=== PATIENT | female | born 1985 | race Caucasian/White ===

== ENCOUNTER 2018-09-18 17:09 | Outpatient (REF) | payer MEDICAID, SELFPAY ==
[2018-09-20 13:01] LABS: Chlamydia Result Negative; GC Result Negative; Specimen Description CERVIX
== END 2018-09-18 17:29 ==
LOC: LBN 17:09
PROVIDERS: Visit Provider Nurse Practitioner Family
DX: Z11.3 Encounter for screening for infections with a predominantly sexual mode of transmission (principal)
CPT/HCPCS: 87491; 87591

== ENCOUNTER 2019-03-16 03:19 | Outpatient (CLI) | payer MEDICAID, SELFPAY ==
--- NOTE | 2019-03-16 13:54 | DI.MRI_ITS ---
EXAM: MR CERVICAL SPINE WO CLINICAL HISTORY: left arm weakness, R29.898. TECHNIQUE: Multiplanar multisequence MRI was performed. MR examination of the cervical spine was pe rformed according to the usual protocol. COMPARISON: No exams were available for comparison FINDINGS: Imaging of the posterior fossa is unremarkable. There are peridiscal vertebral signal changes at C4- 5 and C5-6 consistent with disc degeneration and there is signal loss also seen involving these discs . No significant findings at C2-3 or C3-4. At C4-5, there is mild bilateral neural foraminal narrowing and there is a moderate-sized to large ce ntral disc herniation with associated impingement on and compression of the spinal cord. No intracor d signal abnormality seen. At C5-6, there is a moderate-sized broad-based disc herniation with impression on and deformity of th e anterior cord, no intracord signal abnormality seen. There is bilateral neural foraminal narrowing at C5-6. At C6-7, the bony spinal canal, neural foramina and intervertebral disc appear normal. IMPRESSION: Disc herniations at C4-5 and C5-6 as described above with cord impingement and deformity at each of t hese levels. Bilateral neural foraminal narrowing also noted at each of these levels.
== END 2019-03-16 03:39 ==
PROVIDERS: PCP Emergency Medicine; Visit Provider Emergency Medicine
DX: M50.321 Other cervical disc degeneration at C4-C5 level (principal); M50.322 Other cervical disc degeneration at C5-C6 level; M50.221 Other cervical disc displacement at C4-C5 level; M50.222 Other cervical disc displacement at C5-C6 level
CPT/HCPCS: 72141

== ENCOUNTER 2019-09-18 01:22 | Outpatient (CLI) | payer MEDICAID, SELFPAY ==
--- NOTE | 2019-09-18 | DI.CT_ITS ---
EXAM: CT BRAIN NECK CTA CLINICAL HISTORY: HEAD PAIN, HEADACHE, MIGRAINE, R51, G43.909. TECHNIQUE: Imaging Protocol: Axial CT angiography was performed with multi-slice acquisition and mu lti-planar and/or 3D reconstructions. CONTRAST MATERIAL: Intravenous: Omnipaque 350 Contrast volume:structured data in ml COMPARISON: No exams were available for comparison FINDINGS: CT Head W/O: Ventricles and Extra axial spaces: Normal in size and morphology for the patient's age. Hemorrhage: None. Cerebral parenchyma: Normal. Midline shift: None. Brainstem/Cerebellum: Normal. Calvarium: Normal. Visualized Paranasal sinuses/Mastoids: Clear. Soft Tissues: Unremarkable. CTA Brain W: Internal Carotid Arteries: Petrous: Normal. Cavernous: Normal. Cerebral: Normal. Middle Cerebral Arteries: Right: No aneurysm, occlusion or significant stenosis. Left: No aneurysm, occlusion or significant stenosis. Anterior Cerebral Arteries: Right: No aneurysm, occlusion or significant stenosis. Left: No aneurysm, occlusion or significant stenosis. Posterior cerebral Arteries: Right: No aneurysm, occlusion or significant stenosis. Left: No aneurysm, occlusion or significant stenosis. Vertebral Arteries: Right: No aneurysm, occlusion or significant stenosis. Left: No aneurysm, occlusion or significant stenosis. Basilar Artery: No aneurysm, occlusion or significant stenosis. CTA Neck W: Common Carotid: Right: No aneurysm, occlusion or significant stenosis. Left: No aneurysm, occlusion or significant stenosis. External Carotid: Right: No aneurysm, occlusion or significant stenosis. Left: No aneurysm, occlusion or significant stenosis. Internal Carotid: Right: No aneurysm, occlusion or significant stenosis. Left: No aneurysm, occlusion or significant stenosis. Vertebral Artery: Right: No aneurysm, occlusion or significant stenosis. Left: No aneurysm, occlusion or significant stenosis. Lung Apices: Normal. Bones: Degenerative changes are seen at C4-5 and C5-C6. Soft Tissues: Normal. IMPRESSION: 1. Normal CTA examination of the [place] of [place]. 2. Unremarkable noncontrast CT Head. 3. Normal CTA examination of the neck. RADIATION DOSE DELIVERED: Total DLP DATA REPOSITORY: All CT scans at this facility are submitted to the National Radiology Data Registry (NRDR) Dose Index Registry (DIR) with the [employer] (ACR). RADIATION OPTIMIZATION: All CT scans at this facility use at least one of these dose optimization te chniques: automated exposure control; mA and/or kV adjustment per patient size (includes targeted exa ms where dose is matched to clinical indication); or iterative reconstruction.
[2019-09-18] MEDS: Omnipaque 350 MG/ML 100 ML BTL IJ (08:49)
[2019-09-18] MEDS: Normal Saline Flush 10 ML SYR IVP (08:50)
[2019-09-18] MEDS: Normal Saline - Diluent 50 ML VIAL IV (08:50)
== END 2019-09-18 01:42 ==
PROVIDERS: PCP Emergency Medicine; Visit Provider Neurological Surgery
DX: R51 Headache (principal); G43.909 Migraine, unspecified, not intractable, without status migrainosus
CPT/HCPCS: 70496; 70498; J3490

== ENCOUNTER 2020-05-01 15:35 | Outpatient (REF) | payer MEDICAID, SELFPAY ==
--- NOTE | 2020-05-01 15:00 | PAPFT_PTH ---
PATIENT: Carla Doshi LOC: [facility] U#:[id number] AGE/SX: 35/F ROOM: RE05/01/[address]: DAVE Enamorado : 1985 BED: DIS: 05/01/2020 SPEC #: [id number] RECD: 05/01/20 17:54 STATUS: ROBERT RERosa #: [id number] GRAHAM: 05/01/20 15:[address]: Mariza Walter DEPT: [facility] Cytology RECD BY: Delicia Zelaya ENTERED: 05/01/20 17:54 SP TYPE: PAPFT OTHR DR: Eric Adam, Tissues: 1 - CX/ENDOCX FOR PAP SMEARS Procedures: PAP THIN PREP/UVM Screening HPV DNA PROBE Comments: [id number]
[2020-05-02 16:25] LABS: Chlamydia Result Negative (Negative); GC Result Negative (Negative)
== END 2020-05-01 15:36 | disposition home or self-care (01) ==
LOC: LBN 15:35
PROVIDERS: PCP Emergency Medicine; Visit Provider Nurse Practitioner Family
DX: Z11.3 Encounter for screening for infections with a predominantly sexual mode of transmission (principal); Z12.4 Encounter for screening for malignant neoplasm of cervix; Z11.51 Encounter for screening for human papillomavirus (HPV)
CPT/HCPCS: 87491; 87591; 88142; 87624

== ENCOUNTER 2020-07-28 03:15 | Outpatient (CLI) | payer MEDICAID, SELFPAY ==
[2020-07-29 09:35] LABS: HBs Antibody, Quant 56.1 mIU/mL (See Note); Hepatitis B Surface Ab Positive (See Note)
[2020-07-29 13:19] LABS: Measles IgG Antibody Negative (See Note); Mumps Antibody IgG Positive (See Note); Rubella IgG Ab (UVM) Positive (See Note)
== END 2020-07-28 03:16 | disposition home or self-care (01) ==
LOC: LOS 03:15
PROVIDERS: PCP Emergency Medicine; Visit Provider Physician Assistant
DX: Z11.59 Encounter for screening for other viral diseases (principal); Z01.84 Encounter for antibody response examination; Z00.00 Encounter for general adult medical examination without abnormal findings
CPT/HCPCS: 36415; 86706; 86735; 86762; 86765

== ENCOUNTER 2021-07-21 11:55 | Outpatient (CLI) | payer MEDICAID, SELFPAY ==
--- NOTE | 2021-07-21 10:30 | DI.RAD_ITS ---
Exam(s) XR HIP LT COMPLETE AP PELVIS EXAM: XR HIP LT COMPLETE AP PELVIS CLINICAL HISTORY: LEFT HIP PAIN. TECHNIQUE: 2D digital imaging was performed. COMPARISON: No exams were available for comparison FINDINGS: Two views There is no evidence of pelvic hip fracture. Bone density is normal. Additional lateral view left h ip also reveals no significant joint space narrowing. If there is clinical suspicion for CAM-type CARINE than cross-table lateral view would be recommended as this would better show bony excrescence at the femoral neck level. IMPRESSION: DATA REPOSITORY: RADIATION DOSE DELIVERED:
== END 2021-07-21 11:56 | disposition home or self-care (01) ==
LOC: DIORS 11:55
PROVIDERS: Visit Provider Student in an Organized Health Care Education/Training Program
DX: M25.552 Pain in left hip (principal)
CPT/HCPCS: 73502

== ENCOUNTER 2022-04-23 01:29 | Outpatient (CLI) | payer MEDICAID, SELFPAY ==
[2022-04-23 09:29] LABS: ALT 23 U/L (14-59); AST 21 U/L (15-37); Albumin 3.9 g/dL (3.4-5.0); Alkaline Phosphatase 63 U/L (46-116); Anion Gap 5.5 mmol/L (3-11); BUN 20 mg/dL (7-18); Bilirubin, Total 0.4 mg/dL (0.2-1.0); CO2 29.5 mmol/L (21.0-32.0); CREATININE 1.1 mg/dL (0.55-1.02); Calcium 9.1 mg/dL (8.5-10.1); Calculated LDL 111 mg/dL (<100); Chloride 104 mmol/L (98-107); Cholesterol 186 mg/dL (<200); Estimated GFR 66.37 (mL/min/1.73m2); Glucose 92 mg/dL (74-106); HDL Cholesterol 68 mg/dL (40-60); Potassium 4.1 mmol/L (3.5-5.1); Sodium 139 mmol/L (136-145); TSH (W/Ref FT4) 0.76 uIU/mL (0.36-3.74); Total Protein 7.6 g/dL (6.4-8.2); Triglyceride 35 mg/dL (<150)
== END 2022-04-23 01:30 | disposition home or self-care (01) ==
PROVIDERS: PCP Nurse Practitioner Family; Visit Provider Nurse Practitioner Family
DX: G43.009 Migraine without aura, not intractable, without status migrainosus (principal); Z13.220 Encounter for screening for lipoid disorders
CPT/HCPCS: 36415; 80053; 80061; 84443

== ENCOUNTER 2022-07-28 01:07 | Outpatient (CLI) | payer MEDICAID, SELFPAY ==
--- NOTE | 2022-07-28 12:36 | DI.RAD_ITS ---
Exam(s) XR HIP RT COMPLETE AP PELVIS EXAM: XR HIP RT COMPLETE AP PELVIS INDICATION: no improvement with PT,rt hip pain,m25.551. COMPARISON: CR XR HIP LT COMPLETE AP PELVIS from 07/21/2021 TECHNIQUE: 2D digital imaging was performed. Two views. FINDINGS: Bones are normally mineralized. There is no hip joint space narrowing or significant acetabular spu rring. No soft tissue calcifications. IUD incidentally noted. SI joints and pubic symphysis are un remarkable. IMPRESSION: Negative pelvis and right hip. DATA REPOSITORY: RADIATION DOSE DELIVERED:
== END 2022-07-28 01:27 ==
LOC: DI 01:07
PROVIDERS: PCP Nurse Practitioner Family; Visit Provider Nurse Practitioner Family
DX: M25.551 Pain in right hip (principal)
CPT/HCPCS: 73502

== ENCOUNTER 2022-09-06 02:46 | Outpatient (CLI) | payer MEDICAID, SELFPAY ==
--- NOTE | 2022-09-06 07:00 | DI.MRI_ITS ---
Exam(s) MR LOWER JOINT RT WO EXAM: MR LOWER JOINT RT WO CLINICAL HISTORY: GLUTEAL TENDON TEAR RT, TROCHANTERIC BURSITIS RT HIP, S76.011A, M70.61 TECHNIQUE: Multiplanar multisequence MRI of Pelvis was performed COMPARISON: MR PELVIS ADULT from 08/14/2021 CR XR HIP RT COMPLETE AP PELVIS from 07/28/2022 FINDINGS: Bones: There is no fracture or contusion pattern. No bone marrow edema is seen. Joints: No significant joint effusion or gross labral defect is present. The SI joints and symphysis pubis are well maintained. Disc degeneration at L5-S1. Musculotendinous structures: Mild edema at the gluteus medius insertion. No evidence of trochanteric bursitis. Intrapelvic structures demonstrate no significant abnormality. IUD noted within endometrial stripe. IMPRESSION: Right-sided gluteus medius tendinosis. No evidence of bursitis. DATA REPOSITORY:
== END 2022-09-06 03:06 ==
LOC: DI 02:46
PROVIDERS: PCP Nurse Practitioner Family; Visit Provider Student in an Organized Health Care Education/Training Program
DX: M70.61 Trochanteric bursitis, right hip (principal); S76.011A Strain of muscle, fascia and tendon of right hip, initial encounter; X58.XXXA Exposure to other specified factors, initial encounter
CPT/HCPCS: 73721

== ENCOUNTER 2023-01-28 12:52 | Day surgery (SDC) | payer MEDICAID, SELFPAY ==
[2023-01-28] VITALS (8 sets, daily range): BP systolic 116–128; BP diastolic 54–86; PULSE 77–94; RESP 15–19; TEMP 36.3–37; O2SAT 96–99; BMI 32.1
--- NOTE | 2023-01-28 11:50 | W.PM.DSUDISC ---
Date of service: 01/28/23 Time of Service: 17:30 Discharge Plan Disposition Patient Disposition: Home Condition: Stable Discharge Details Attending Provider: Emir Saab Primary Care Provider: Kevin Meek Home Meds and New Rx's Prescriptions: New naproxen 250 mg tablet 250 - 500 mg PO BID PRN (Reason: moderate pain and swelling) Qty: 40 0RF aspirin 81 mg capsule 81 mg PO DAILY 14 Days Qty: 14 0RF oxycodone 5 mg tablet 5 - 10 mg PO .q4-6h PRN (Reason: severe pain) Qty: 18 0RF Continued Mirena 20 mcg/24 hours (6 yrs) 52 mg intrauterine device 1 device intrauterine ONCE Rx Instructions: as a single dose riboflavin (vitamin B2) 100 mg tablet 200 mg PO BID Qty: 360 4RF rizatriptan 10 mg tablet,disintegrating 10 mg PO ONCE PRN (Reason: migraine headache) Qty: 14 12RF Rx Instructions: may repeat once after at least 2 hours ondansetron 4 mg tablet,disintegrating 4 mg PO Q8H PRN (Reason: nausea and vomiting) Qty: 30 0RF Discharge Instructions Additional Instructions: Surgery: Right hip endoscopy with iliotibial band release and trochanteric bursectomy Activity: Weightbearing as tolerated. May use crutches for a couple weeks. Gradually advance to full range of motion and activity over the next 6-8 weeks. A physical therapy prescription will be provided separately in the office at follow up if needed. Prescriptions: Aspirin 81 mg take 1 daily to prevent a blood clot for 2 weeks Naproxen 250 mg take 1-2 every 12 hours with a meal as needed for moderate pain Oxycodone 5 mg take 1-2 every 4-6 hours as needed for severe pain You may use aiql-pni-boluaeo Tylenol (acetaminophen) as needed for mild pain. These pain medications may be taken all at once or in different combinations as needed. Also, recommend Colace (docusate) as a stool softener as surgery and pain medicine cause constipation. You may try lkza-lkw-bvbbzjh diphenhydramine (Benadryl) 25-50 mg nightly as a sleep aid Dressings: Leave dressing in place for 3 days. May then remove and leave open to air or cover incisions with Band-Aids. Leave the sticky Steri-Strips in place until they fall off or remove them after you shower. May shower after 5 days. Follow-up: 10-[address] Saab You may take off the leg compression stockings this evening at home. You may also leave them on a few days longer if you have a history of leg swelling or edema. Let us know right away if you develop any redness, drainage, fevers, chest pain, or trouble breathing. Do not drink alcohol or drive for at least 24 hours after anesthesia. Please call the office during business hours with any questions or concerns. Stand Alone Forms: Anesthesia Discharge Inst., Anes.Sugammadex Interaction, Lily Saldaña (DSU) Discharge Orders Discharge Orders: Discharge Order (Routine); Ordered 01/28/23 Ordered By: Emir Saab DS: Diagnosis Discharge Diagnosis (1) Trochanteric bursitis of right hip: Status: Acute
--- NOTE | 2023-01-28 12:06 | W.PM.OP ---
Date of service: 01/28/23 Time of Service: 16:00 Operative Note Operative Note DATE OF PROCEDURE: 01/28/23 PRE-OP DIAGNOSIS: Right hip 1. Trochanteric bursitis 2. Gluteal tendon tear POST-OP DIAGNOSIS: same PROCEDURE: Right hip endoscopic 1. Iiliotibial band release, CPT# 12285 2. Trochanteric bursectomy, CPT# 04937 SURGEON: Emir Saab ANESTHESIA TYPE: Local By Surgeon and General LMA/ETT Refer to Anesthesia Record ESTIMATED BLOOD LOSS: 5 COMPLICATIONS: None Patient was transported to: PACU Patient's condition: stable Indications: Please see complete medical record for details. Findings: Jett thickened iliotibial band. Abundant inflamed trochanteric bursitis. Minimal gluteus medius partial tearing. Procedure Description: In the operating room, general anesthesia was induced. The patient was positioned supine on the [place] operating room table. All bony prominences were well-padded. Preoperative antibiotics were administered. The hip was prepped and draped in the usual sterile fashion. The correct patient, procedure, and side of the procedure were all verified prior to incision. 30 cc of 0.25% bupivacaine containing epinephrine was infiltrated about the subcutaneous tissues for the planned anterior lateral and distal anterolateral portals as well as deeply over the greater trochanter. A knife was used to incise the skin for the anterior lateral and distal anterolateral portals followed by blunt dissection subcutaneously. Under fluoroscopic guidance, a switching stick and arthroscope were inserted localizing the iliotibial band over the greater trochanter. Blunt dissection and the mechanical shaver were used to resect fat and overlying tissue about the center of the iliotibial band and carefully expose the anterior and posterior margins. Once there was adequate exposure of the IT band, the greater trochanter was again localized under fluoroscopic guidance with a spinal needle inserted through the skin down to bone. This central area was marked using the radiofrequency ablator. A Marshall blade was brought in and used to create a 2 cm longitudinal incision in line with the IT band fibers as well as extending it in a cruciate fashion with 2 cm incisions anteriorly and posteriorly. The radiofrequency ablator was used to achieve hemostasis. The mechanical shaver was then used to debride the IT band released edges exposing the trochanteric bursa. The mechanical shaver was then used to excise the trochanteric bursa taking care to protect musculature about the margins of the greater trochanter as well as neurovascular structures especially posteriorly. There was excellent visualization of the vastus lateralis as well as gluteus medius confirming appropriate bursa excision. The hip was brought through range of motion including internal and external rotation and there was no impinging iliotibial band tissue or remaining pathologic bursa. The viewing and working portals were switched and appropriate IT band release, trochanteric bursa excision, and hemostasis confirmed. Suction was used to remove fluid from the endoscopic space. The portals were closed using 3-0 Monocryl in a buried fashion. Steri-Strips were applied over the incisions followed by Xeroform, 4 x 4 gauze, an ABD pad, and secured with tape. The patient awoke from anesthesia without complication and was transferred to the recovery room in a stable condition.
[2023-01-28] MEDS: Lactated Ringers 1,000 ML 30 ML IV (14:00)
--- NOTE | 2023-01-28 14:14 | W.ANESPRE ---
General Info Date of Service Date Performed: 01/28/23 Height: 5 ft 5 in Weight: 87.7 kg Body Mass Index (BMI): 32.1 Surgical Procedure: Operation Date: 01/28/23 14:35 Proposed Procedure Side Surgeon p Endoscopic Iliotibial Band Release w/Trochanteric Buresectomy, Possible Gluteal Tendon Repair Right Emir Saab MD Meds Allergies and Home Medications Allergies Allergy/AdvReac Type Severity Reaction Status Date / Time Environmental Allergy Mild Runny Uncoded 01/28/23 13:36 nose, watery, sneezing Home Medication Medication Instructions Recorded levonorgestrel 21 mcg/24 hours (8 1 device intrauterine ONCE 05/01/20 yrs) 52 mg intrauterine device (Mirena) ondansetron 4 mg disintegrating 4 mg PO Q8H PRN nausea and 04/21/22 tablet vomiting #30 tabs riboflavin (vitamin B2) 100 mg 200 mg (2 x 100 mg) PO BID #360 04/21/22 tablet tabs rizatriptan 10 mg disintegrating 10 mg PO ONCE PRN migraine 04/21/22 tablet headache #14 tabs aspirin 81 mg capsule 81 mg PO DAILY prevent blood clot 01/28/23 14 days #14 caps ibuprofen 800 mg tablet (IBU) 800 mg PO ONCE 01/28/23 naproxen 250 mg tablet 250 - 500 mg (1 - 2 x 250 mg) PO 01/28/23 BID PRN moderate pain and swelling #40 tabs oxycodone 5 mg tablet 5 - 10 mg (1 - 2 x 5 mg) PO .q4-6h 01/28/23 PRN severe pain #18 tabs Current Visit Medications: Current Medications Generic Name Dose Route Start Last Admin Trade Name Freq PRN Reason Stop Dose Admin Ringer's Solution 1,000 mls @ 30 mls/hr 01/28/23 06:00 01/28/23 14:00 IV 02/26/23 23:59 30 mls/hr INFUSION SHIRA Administration Cefazolin Sodium/Dextrose 2 gm in 50 mls @ 100 mls/hr 01/28/23 06:00 Ancef Duplex IVPB 02/26/23 23:59 PREOP SHIRA IV Miscellaneous Supplies 1 each 01/28/23 06:00 Iv Access IV 02/26/23 23:59 DIRECTED [facility] Oxycodone HCl 0 mg 01/28/23 12:04 Oxycodone 5 Mg Tab PO 02/27/23 12:03 Q3H PRN PRN Pain Sodium Chloride 0 ml 01/28/23 06:00 Normal Saline Flush 10 Ml Syr IV 02/26/23 23:59 PRN PRN Sodium Chloride 0 ml 01/28/23 06:00 Normal Saline 10 Ml Vial IJ 02/26/23 23:59 DIRECTED PRN Sterile Water 0 ml 01/28/23 06:00 Water,Injection,Sterile 10 Ml Vial IJ 02/26/23 23:59 DIRECTED PRN PFSH Active Problems Active Problems: Problem Status Onset Code Trochanteric bursitis of right hip M70.61 Tear of right gluteus medius tendon S76.011A Migraine without aura and without status migrainosus, not intractable 01/12/16 G43.009 IUD surveillance Z30.431 Neck pain M54.2 Cervical disc herniation M50.20 Cervical spondylolysis M43.02 Labral tear of left hip joint S73.192A Right hip pain M25.551 Medical History Medical History History of herniated intervertebral disc Tobacco Smoking/Tobacco Use Status: Never Passive smoking exposure: Yes Second hand exposure: Yes Alcohol Alcohol Intake: current Alcohol intake frequency: holidays/special occasions only Alcohol type: beer, wine and hard liquor Substance Use Substance use: Never Substance use type: does not use Details: alcohol: t-2, few Prental History History 2 Para 2 Hx # Term Pregnancies Multiple births Hx # Pregnancies Ectopic pregnancies AB induced Hx Number of Living Children AB spontaneous Vital Signs and Lab Results Vital Signs Most Recent Vital Signs in EMR: Most Recent Vital Signs Temp Pulse Resp BP Pulse Ox 36.7 C 83 18 128/86 98 01/28/23 13:46 01/28/23 13:46 01/28/23 13:46 01/28/23 13:46 01/28/23 13:46 Point of Care Results Point of Care Results: POC- Test(urine) Negative 01/28/23 13:48 Lab Results Blood Type / Crossmatch: No Data to Display Complete Blood Count: No Data to Display Complete Metabolic Panel: No Data to Display Liver Function Panel: No Data to Display Coagulation Panel: No Data to Display Cardiac Panel: No Data to Display Arterial Blood Gas: No Data to Display Venous Blood Gas: No Data to Display Pancreas Panel: No Data to Display Thyroid Panel: No Data to Display Infectious Disease: No Data to Display Blood Cultures: No Data to Display Toxicology Panel: No Data to Display Panel: No Data to Display Anesthesia Assessment and Plan Anesthesia History Personal History: No History of Anesthesia Complications Family History: No Family History of Anesthesia Complications Exercise Tolerance Exercise Tolerance: Metabolic Equivalents>4 Pertinent Negatives Pertinent Negatives: No Symptoms of GERD, No Major Cardiovascular Symptoms or Complaints and No Major Pulmonary Symptoms or Complaints Cardiac & Pulmonary Exam Cardiac Exam: Normal S1/S2 Heart Sounds Pulmonary Exam: Clear Bilateral Breath Sounds Implantable Cardiac Device Does patient have a Pacemaker or an ICD?: No Airway Exam Known Difficult Airway: No Mallampati Class: 2 Mouth Opening: Normal (> 3cm) Thyromental Distance: Greater than 3 cm Neck Range of Motion: Full ROM Neck Circumference: Normal Teeth Condition: Normal Dentition ASA Classification ASA Score: ASA 2 Emergency Case?: No NPO Status NPO Status: NPO Clears >2 hours, Solids >8 hours Status Status: Negative HCG Anesthesia Plan Resuscitation Status: Full Code Anesthesia Technique: General Anesthesia Airway Planned: LMA Monitors Used: Standard Monitors Preoperative Comments:: Patient reports bilateral hand tingling, right greater than left that can be exacerbated when patient is sleeping. Patient denies any discomfort or hand tingling with extension or flexion and reports her spine surgeon never mentioned any limitations in ROM.
--- NOTE | 2023-01-28 14:45 | DI.RAD_ITS ---
Exam(s) XR HIP RT IN OR EXAM: XR HIP RT IN OR CLINICAL HISTORY: (1) Trochanteric bursitis of right hip. TECHNIQUE: 2D digital imaging was performed. COMPARISON: No exams were available for comparison FINDINGS: Fluoroscopy provided during therapeutic injection of trochanteric bursa region. See procedure report for details. Total fluoroscopy time 9.8 seconds IMPRESSION: Radiation exposure index/cumulative dose: Victor Hugor= 1.3481 mGy DATA REPOSITORY: RADIATION DOSE DELIVERED:
[2023-01-28] MEDS: ceFAZolin 2 GM/50 ML BAG IVPB (15:54)
[2023-01-28] MEDS: Bupivacaine 0.25% Pres-Free 30 ML VIAL (16:15)
[2023-01-28] MEDS: EPINEPHrine 10 MG/10 ML ML (16:15)
[2023-01-28] MEDS: ACETAMINOPHEN 1,000 MG/100 ML BTL 100 MG (16:30)
--- NOTE | 2023-01-28 17:25 | W.ANESPOSTOP ---
Postoperative Evaluation Date, Time and Location Date Performed: 01/28/23 Time Performed: 17:25 Patient Location: PACU Vital Signs Most Recent Imported Vital Signs: Most Recent Vital Signs Temp Pulse Resp BP Pulse Ox 36.3 C L 85 19 128/54 L 98 01/28/23 17:19 01/28/23 17:19 01/28/23 17:19 01/28/23 17:19 01/28/23 17:19 Pain Score Most Recent Pain Score: Most Recent Pain Score Pain Level 1 01/28/23 13:46 Assessment Mental Status: Awake (Alert & Oriented to Patient Baseline) Airway and Respiratory Function: Patent airway with normal (patient baseline) respiratory exam Cardiovascular Function: Hemodynamically Stable Hydration Status: Adequately Hydrated Nausea & Vomiting: No Nausea or Vomiting Pain: Pain is tolerable per patient (5/10 in hip, refusing pain medication at this time.) Peripheral Nerve Block: Patient did not receive a nerve block
== END 2023-01-28 18:40 | disposition home or self-care (01) ==
LOC: SUR 12:53 → MS 17:33
PROVIDERS: PCP Nurse Practitioner Family; Visit Provider Student in an Organized Health Care Education/Training Program
PROC: (CPT 29863; principal; 2023-01-28 14:15)
DX: M70.61 Trochanteric bursitis, right hip; X58.XXXA Exposure to other specified factors, initial encounter; S76.011A Strain of muscle, fascia and tendon of right hip, initial encounter
CPT/HCPCS: 27062; 27305; 81025; 73501; G0378; J0131; J0690; J1100; J1885; J2405; J2704

== ENCOUNTER → 2023-06-16 04:34 | Outpatient (CLI) | payer MEDICAID, SELFPAY ==
--- NOTE | 2023-06-16 07:15 | DI.MRI_ITS ---
Exam(s) MR LOWER JOINT RT WO EXAM: MR LOWER JOINT RT WO CLINICAL HISTORY: ? GLUTEAL TENDON TEAR,s76.011a TECHNIQUE: Multiplanar multisequence MRI of hip was performed COMPARISON: MR MR LOWER JOINT RT WO from 09/06/2022 FINDINGS: Bones: There is no evidence of a fracture or avascular necrosis. No significant joint effusion or l abral injury is present. No bone marrow edema is seen. The SI joints and symphysis pubis are well constantino ntained. Musculotendinous structures: There is no evidence of a tear of the gluteus medius or gluteus minimus tendons. There is mild tendinosis of the gluteus medius tendon. There is a tear of the right iliot ibial band measuring 1.1 cm craniocaudad. (Series [id number], image 14). There is mild associated edema in the soft tissues. The muscles show normal signal and size. Note is made of an IUD. It appears i n good position. Cervical nabothian cysts are seen. The ovaries are grossly unremarkable. Follicle s are seen bilaterally. IMPRESSION: 1. 1.1 cm tear of the right iliotibial band. 2. Right gluteus medius tendinosis. No evidence of a gluteus medius or gluteus minimus tendon tear. DATA REPOSITORY:
== END ==
PROVIDERS: PCP Nurse Practitioner Family; Visit Provider Student in an Organized Health Care Education/Training Program
DX: S76.011A Strain of muscle, fascia and tendon of right hip, initial encounter (principal)
CPT/HCPCS: 73721

== ENCOUNTER → 2023-06-16 04:39 | Outpatient (CLI) | payer MEDICAID, SELFPAY ==
--- NOTE | 2023-06-16 07:15 | DI.MRI_ITS ---
Exam(s) MR CERVICAL SPINE WO EXAM: MR CERVICAL SPINE WO CLINICAL HISTORY: no improvement with PT,neck pain,cervical disc herniation,spondylolysis, TECHNIQUE: Multiplanar multisequence MRI of the cervical spine was performed without intravenous con trast. COMPARISON: MR MR CERVICAL SPINE WO from 03/16/2019 FINDINGS: BONES: Vertebral body heights are maintained. Intervertebral disc spaces are normal. There is mild re versal of the normal cervical lordosis seen at C4-C5. Degenerative endplate signal changes are seen a t C4-5 and C5-C6. CERVICAL CORD: Craniovertebral junction is unremarkable. The cervical cord is normal size and signal intensity. SOFT TISSUES: Unremarkable. C2-3: No disc herniation or bulge is identified. No significant central spinal canal or neural forami nal stenosis. C3-4: No disc herniation or bulge is identified. No significant central spinal canal or neural forami nal stenosis C4-5: There is prominence of the osteophyte disc complex with compression of the spinal cord. The AP diameter of the spinal canal is 7.8 mm. There is mild bilateral neural foraminal stenosis. C5-6: There is again seen prominence of the osteophyte disc complex with compression of the spinal co rd. The AP diameter of the spinal now is narrowed to 6.5 mm. There is bilateral neural foraminal st enosis, right greater than left. This is mild on the left and moderate on the right. C6-7: No disc herniation or bulge is identified. No significant central spinal canal or neural forami nal stenosis C7-T1: No disc herniation or bulge is identified. No significant central spinal canal or neural janessa inal stenosis IMPRESSION: 1. C5-6 and C4-C5 degenerative changes causing central spinal canal stenosis and compression of the s [place] cord. There is also bilateral neural foraminal stenosis at each of the levels, right greater t kulkarni left. 2. Normal signal in the spinal cord. DATA REPOSITORY:
== END ==
PROVIDERS: PCP Nurse Practitioner Family; Visit Provider Nurse Practitioner Family
DX: M54.2 Cervicalgia (principal); M50.20 Other cervical disc displacement, unspecified cervical region; M43.02 Spondylolysis, cervical region
CPT/HCPCS: 72141

== ENCOUNTER → 2023-07-06 03:04 | Outpatient (CLI) | payer MEDICAID, SELFPAY ==
--- NOTE | 2023-07-06 15:00 | DI.MRI_ITS ---
Exam(s) MR BRAIN WO EXAM: MR BRAIN WO CLINICAL HISTORY: R51.9 HEADACHE X 2 YRS, ? CHIRARI OR OTHER ABN TECHNIQUE: Multiplanar multisequence MRI of the brain was performed. COMPARISON: CT CT BRAIN NECK CTA from 09/18/2019 MR MR CERVICAL SPINE WO from 06/16/2023 FINDINGS: VENTRICLES AND EXTRA AXIAL SPACES: Normal in size and morphology for the patient's age. MIDLINE SHIFT: None. CEREBRAL PARENCHYMA: No focus of restricted diffusion to suggest acute infarct. No space-occupying le tegan identified. Mild atrophy consistent with the patient's age. Mild scattered foci of high signal in the white matter consistent with sequela of chronic microvascular disease. HEMORRHAGE: None. BRAINSTEM/CEREBELLUM: Cerebellar tonsils extend slightly below the foramen magnum, approximately 5 mi llimeters. There is is no evidence of compression on the brainstem. VISUALIZED PARANASAL SINUSES/MASTOIDS:Clear. Vasculature: Normal flow void. PITUITARY GLAND: Unremarkable. ORBITS: Unremarkable. IMPRESSION: Cerebellar tonsils lie approximately 5 millimeters below the level of the foramen magnum. There is n o evidence of compression of the brainstem. DATA REPOSITORY:
--- NOTE | 2023-07-06 15:02 | DI.RAD_ITS ---
Exam(s) XR CERVICAL SP MATHIS TRAUMA 2-3V EXAM: XR CERVICAL SP MATHIS TRAUMA 2-3V CLINICAL HISTORY: HEADACHE R51.9, CERVICAL SPONDYLOSIS M47.812 TO ASSESS ABN MOTION. TECHNIQUE: 2D digital imaging was performed. Three upright views. Lateral views in neutral, flexio n and extension. COMPARISON: MR MR CERVICAL SPINE WO from 06/16/2023 FINDINGS: BONES: No fracture or destructive lesion. DISKS: Moderate narrowing of the C4-5 disc space with circumferentially projecting osteophytes. Bernie lar findings at C5-6. Remaining disc spaces are maintained. ALIGNMENT: Cervical spinal alignment is within normal limits. The odontoid and atlantoaxial articulat ions are normal. There is no subluxation with flexion or extension. SOFT TISSUE: Normal. The lung apices are clear. IMPRESSION: Degenerative disc changes C5-6 and C6-7. DATA REPOSITORY: RADIATION DOSE DELIVERED:
== END ==
PROVIDERS: PCP Nurse Practitioner Family; Visit Provider Physician Assistant Medical
DX: M47.812 Spondylosis without myelopathy or radiculopathy, cervical region (principal); R51.9 Headache, unspecified; M50.322 Other cervical disc degeneration at C5-C6 level; M50.323 Other cervical disc degeneration at C6-C7 level
CPT/HCPCS: 70551; 72040

== ENCOUNTER 2024-04-13 02:18 | Outpatient (CLI) | payer MEDICAID, SELFPAY ==
[2024-04-13 12:27] LABS: HCT 38.6 % (36.0-46.0); HGB 12.7 g/dL (11.2-15.7); MCH 27.8 pg (27.0-33.0); MCHC 32.9 % (32.0-36.0); MCV 85 fL (80-95); MPV 11.4 fL (8.0-11.0); Platelet Count 267 10^3/uL (130-400); RBC 4.57 10^6/uL (3.93-5.22); RDW 12.9 % (11.7-14.6); RDW-SD 39.5 fL; WBC 5.88 10^3/uL (4.4-10.8)
[2024-04-13 13:09] LABS: ALT 20 U/L (14-59); AST 20 U/L (15-37); Albumin 3.8 g/dL (3.4-5.0); Alkaline Phosphatase 68 U/L (46-116); Anion Gap 3.8 mmol/L (3-11); BUN 12 mg/dL (7-18); Bilirubin, Total 0.38 mg/dL (0.2-1.0); CO2 31.2 mmol/L (21.0-32.0); CREATININE 1.2 mg/dL (0.55-1.02); Calcium 9.3 mg/dL (8.5-10.1); Calculated LDL 107 mg/dL (<100); Chloride 105 mmol/L (98-107); Cholesterol 190 mg/dL (<200); Estimated GFR 59.42 (mL/min/1.73m2); Glucose 88 mg/dL (74-106); HDL Cholesterol 77 mg/dL (40-60); Potassium 4.2 mmol/L (3.5-5.1); Sodium 140 mmol/L (136-145); TSH 1.12 uIU/mL (0.36-3.74); Total Protein 7.7 g/dL (6.4-8.2); Triglyceride 32 mg/dL (<150); Vitamin D 25 Total 25.4 ng/mL (30-100)
[2024-04-13 13:10] LABS: C-Reactive Protein < 0.50 mg/dL (<or=0.5)
[2024-04-16 09:59] LABS: Insulin 5.6 uIU/mL (<29.0)
== END 2024-04-13 02:19 | disposition home or self-care (01) ==
LOC: LOS 02:18
PROVIDERS: PCP Nurse Practitioner Family; Visit Provider Nurse Practitioner Family
DX: G43.909 Migraine, unspecified, not intractable, without status migrainosus (principal); R53.83 Other fatigue; R63.5 Abnormal weight gain
CPT/HCPCS: 36415; 80053; 80061; 82306; 85027; 83525; 84443; 86140

== ENCOUNTER 2024-05-24 02:58 | Outpatient (CLI) | payer MEDICAID, SELFPAY ==
[2024-05-24 14:53] LABS: Hemoglobin A1C 5.4 % (<5.7)
== END 2024-05-24 02:59 | disposition home or self-care (01) ==
PROVIDERS: PCP Nurse Practitioner Family; Visit Provider Nurse Practitioner Family
DX: R53.83 Other fatigue (principal); R63.5 Abnormal weight gain; G43.909 Migraine, unspecified, not intractable, without status migrainosus
CPT/HCPCS: 36415; 83036

== ENCOUNTER 2024-06-28 01:14 | Outpatient (CLI) | payer MEDICAID, SELFPAY ==
--- NOTE | 2024-06-28 06:45 | DI.MRI_ITS ---
Exam(s) MR LUMBAR SPINE WO EXAM: MR LUMBAR SPINE WO CLINICAL HISTORY: no improvement with PT, lumbago of lumbar region with sciatica, M54.40. TECHNIQUE: Multiplanar multisequence MRI of the Lumbar spine was performed. COMPARISON: MR MRI - LUMBAR SPINE W/WO CONT from 04/09/2016 CR XR CERVICAL SP MATHIS TRAUMA 2-3V from 07/06/2023 FINDINGS: Bones: The last intervertebral disc space is designated the L5/S1 level for the numbering purpose of this ex amination. The vertebral body heights are well maintained. Alignment: Unremarkable. The marrow signal characteristics are unremarkable. Cord: The conus tip ends at the T12 level. It is of normal size and signal intensity. T12-L1: No focal disc herniation is present. No central spinal canal stenosis.No neural foraminal st enosis. L1-2: No focal disc herniation is present. No central spinal canal stenosis.No neural foraminal sten osis. L2-3:No focal disc herniation is present. No central spinal canal stenosis.No neural foraminal stenos is. L3-4:Mild loss of disc height and mild disc bulging. Facet degenerative changes and ligamentous hype rtrophy cause slight central canal stenosis. No focal disc herniation is present. No neural foraminal stenosis. L4-5:Partial disc desiccation and mild concentric disc bulging. Facet degenerative changes and ligam entous hypertrophy combine with disc bulging to produce mild central canal stenosis. No neural janessa inal narrowing. L5-S1: Postsurgical changes noted. Marked loss of disc height. Small endplate osteophytes. No cent ral canal stenosis. Mild right and moderate left neural foraminal narrowing. The visualized SI joints and sacrum are unremarkable. Soft tissues: The paraspinal soft tissues are unremarkable. IMPRESSION: No evidence of disc herniation at any level. Increasing degenerative changes at L3-4 and L4-5 since the previous exam. There is slight central ca nal stenosis at L3-4 and mild central canal stenosis at L4-5. Stable degenerative and postsurgical changes at L5-S1 with left greater than right neural foraminal n arrowing. DATA REPOSITORY:
== END 2024-06-28 01:34 ==
LOC: DI 01:14
PROVIDERS: PCP Nurse Practitioner Family; Visit Provider Nurse Practitioner Family
DX: M54.41 Lumbago with sciatica, right side (principal); M48.062 Spinal stenosis, lumbar region with neurogenic claudication
CPT/HCPCS: 72148